=== PATIENT | male | born 1970 | race Caucasian/White ===

== ENCOUNTER 2017-05-25 06:01 | Day surgery (SDC) | payer BC ==
[2017-05-18 09:27] VITALS: BMI 30.2
[~2017-05-25 06:01] MED LIST: DEXAMETHASONE SOD PHOSPHATE 10 MG/ML 1 ML VIAL IV ONE; HEPARIN SODIUM,PORCINE 5,000 UNIT/ML 1 ML VIAL SQ ONE; LACTATED RINGERS 1,000 ML IV SCH; MIDAZOLAM 2 MG/2 ML VIAL IV PRN; ONDANSETRON 4 MG/2 ML VIAL IVP ONE; SCOPOLAMINE 1.5MG/72HR PATCH TRANSDERM ONE
[2017-05-25] MEDS ORDERED: LIDOCAINE 1% 20 ML VIAL (10MG/ML) FOR IV START INTRADERMA ONE (06:40)
[2017-05-25] MEDS ORDERED: BUPIVACAINE (PF) 0.25% 30 ML VIAL SQ ONE ×2 (07:38→08:53)
[2017-05-25] MEDS: ceFAZolin IN SWFI 2 GM/20 ML SYRINGE IVP ONE ×2 (07:39→08:01)
--- NOTE | 2017-05-25 07:41 | P.GSHP ---
History of Present Illness H&P Date: 05/25/17 Chief Complaint: Umbilical hernia Patient was seen in the office with complaints of a supraumbilical bulge. Patient has complaints of pain in that location. It is increasing in size. He is interested in surgical repair. No nausea or vomiting. No change in bowel habits. Past Medical History Past Medical History: No Reported History History of Any Multi-Drug Resistant Organisms: None Reported Additional Past Surgical History / Comment(s): Colonoscopy, [place] Teeth. Past Anesthesia/Blood Transfusion Reactions: No Reported Reaction Smoking Status: Never smoker - Past Family History Mother Family Medical History: No Reported History Brother(s) Family Medical History: Cancer Additional Family Medical History / Comment(s): Colon Medications and Allergies Home Medications Medication Instructions Recorded Confirmed Type No Known Home Medications [No 05/18/17 05/25/17 History Known Home Medications] Allergies Allergy/AdvReac Type Severity Reaction Status Date / Time No Known Allergies Allergy Verified 05/25/17 06:22 Surgical - Exam Vital Signs Temp Pulse Resp BP Pulse Ox 98.1 F 74 16 137/85 98 05/25/17 06:36 05/25/17 06:36 05/25/17 06:36 05/25/17 06:36 05/25/17 06:36 Physical exam: General: Well-developed, well-nourished HEENT: Normocephalic, sclerae nonicteric Abdomen: Nontender, nondistended, incarcerated supra umbilical hernia Extremities: No edema Neuro: Alert and oriented Assessment and Plan (1) Umbilical hernia Narrative/Plan: Will proceed with operative repair likely with mesh. Risks of bleeding, infection, recurrence, bladder and bowel injury, numbness, nerve injury were discussed. The patient understands and wishes to proceed. Current Visit: Yes Status: Acute Code(s): K42.9 - UMBILICAL HERNIA WITHOUT OBSTRUCTION OR GANGRENE SNOMED Code(s): 142078979
[2017-05-25] MEDS ORDERED: fentaNYL (PF) 50 MCG/ML 2 ML AMP ONE (08:07)
[2017-05-25] MEDS ORDERED: KETOROLAC 30 MG/ML 1 ML VIAL ONE (08:07)
[2017-05-25] MEDS ORDERED: MIDAZOLAM 2 MG/2 ML VIAL ONE (08:07)
[2017-05-25] MEDS ORDERED: PROPOFOL 10 MG/ML 20 ML VIAL IV ONE (08:07)
[2017-05-25] MEDS ORDERED: LACTATED RINGERS 1,000 ML IV ONE (08:59)
[2017-05-25] MEDS ORDERED: IV FLUID CONTINUATION 1,000 ML IV ONE ×2 (09:10)
[2017-05-25] MEDS ORDERED: HYDROcodone/APAP 5-325MG 1 EACH TAB PO PRN (09:16)
[2017-05-25] MEDS ORDERED: NALOXONE 0.4 MG/ML 1 ML VIAL IV PRN (09:16)
[2017-05-25 09:18] VITALS: TEMP 97.1
--- NOTE | 2017-05-25 09:24 | P.OP ---
Date of Procedure: 05/25/17 Procedure(s) Performed: PREOPERATIVE DIAGNOSIS: Incarcerated umbilical hernia POSTOPERATIVE DIAGNOSIS: Incarcerated ventral hernia with small umbilical hernia PROCEDURE: Ventral and umbilical herniorrhaphy with mesh SURGEON: Cassi EBL: Minimal ANESTHESIA: General COMPLICATIONS: None OPERATIVE PROCEDURE: The patient was placed in the operating table in the supine position. A periumbilical incision was made using the scalpel. The subcutaneous tissues were dissected bluntly. The hernia sac was identified. The umbilical attachments to the fascia were divided using electrocautery. The hernia sac was excised was noted to be coming from a 1 cm defect approximately 1.5 cm superior to the umbilicus. There was also a small defect present at the base of the umbilicus measuring about 6 mm. These were both included into one defect. The hernia sac was sent to pathology. The preparedwas dissected using blunt dissection and cautery. The 4.3 cm ventral X mesh was placed in the preperitoneal space and sutured to the fascia using trans-fascial 0 Ethibond sutures. The defect was closed using interrupted [id number] 0 Ethibond sutures. The subcutaneous tissues were reapproximated using inverted 3-0 Vicryl sutures. The umbilicus was tacked back down to the fascia using a 3-0 Vicryl suture. The skin was closed using 4-0 Monocryl sutures. Steri-Strips and sterile dressings were then applied. DISPOSITION: Stable to recovery room
[2017-05-25] MEDS: fentaNYL (PF) 50 MCG/ML 2 ML AMP IV PRN ×2 (09:25→09:29)
[2017-05-25 09:27] VITALS: RESP 18
[2017-05-25] MEDS ORDERED: HYDROcodone/APAP 5-325MG 1 EACH TAB PO ONE (10:01)
[2017-05-25 10:23] VITALS: BP 144/87; PULSE 78
== END 2017-05-25 10:51 | disposition home or self-care (01) ==
LOC: OR 06:01
PROVIDERS: ATTEND Surgery
DX: K42.0 Umbilical hernia with obstruction, without gangrene (principal); K43.6 Other and unspecified ventral hernia with obstruction, without gangrene
CPT/HCPCS: 88302; 49587; C1781; J2250; J1644; J1100; J2405; J3010; J1885; J2704; J0690

== ENCOUNTER 2022-01-02 17:11 | Observation (INO) | payer BC ==
[2022-01-02] MEDS ORDERED: NITROGLYCERIN OINT 1 INCH/GM PACKET TOPICAL STA (17:47)
[2022-01-02] MEDS ORDERED: ASPIRIN 81 MG PO STA (17:47)
--- NOTE | 2022-01-02 17:57 | ED ---
General Adult HPI - General Chief complaint: Chest Pain Stated complaint: Chest Pain,PCP sent Source: patient, RN notes reviewed, old records reviewed Mode of arrival: ambulatory Limitations: no limitations - History of Present Illness Initial comments: This a 51-year-old male with past medical history significant for high blood pressure. Patient states he has been having chest pain intermittently lasting a few hours at a time and radiating down his left arm. Patient states is also somewhat short of breath when it occurs. Patient states today he felt better so he decided to work out after the workout he had significant chest pain with some shortness of breath and didn't feel good and also decided come to the emergency department. Patient states he did not overdo it with the workout. Patient denies any recent fever chills or cough. Patient denies any abdominal pain patient denies nausea vomiting diarrhea. Patient denies any swelling to the legs or calf tenderness. Patient denies any recent trips or long travel. Patient denies lightheadedness or dizziness. Patient denies headache per patient states currently his chest pain but is not as bad as it was earlier. - Related Data Home Medications Medication Instructions Recorded Confirmed traZODone HCL [Desyrel] 50 mg PO HS PRN 01/02/22 01/02/22 Allergies Allergy/AdvReac Type Severity Reaction Status Date / Time No Known Allergies Allergy Verified 01/02/22 18:16 Review of Systems ROS Statement: Those systems with pertinent positive or pertinent negative responses have been documented in the HPI. ROS Other: All systems not noted in ROS Statement are negative. Past Medical History Past Medical History: Hypertension History of Any Multi-Drug Resistant Organisms: None Reported Additional Past Surgical History / Comment(s): Colonoscopy, [place] Teeth. Past Anesthesia/Blood Transfusion Reactions: No Reported Reaction Past Psychological History: No Psychological Hx Reported Smoking Status: Never smoker Past Alcohol Use History: Occasional Past Drug Use History: None Reported - Past Family History Mother Family Medical History: No Reported History Brother(s) Family Medical History: Cancer Additional Family Medical History / Comment(s): Colon General Exam - General Exam Comments Initial Comments: GENERAL: Patient is well-developed and well-nourished. Patient is nontoxic and well- hydrated and is in mild distress. ENT: Neck is soft and supple. No significant lymphadenopathy is noted. Oropharynx is clear. Moist mucous membranes. Neck has full range of motion without eliciting any pain. EYES: The sclera were anicteric and conjunctiva were pink and moist. Extraocular movements were intact and pupils were equal round and reactive to light. Eyelids were unremarkable. PULMONARY: Unlabored respirations. Good breath sounds bilaterally. No audible rales rhonchi or wheezing was noted. CARDIOVASCULAR: There is a regular rate and rhythm without any murmurs gallops or rubs. ABDOMEN: Soft and nontender with normal bowel sounds. No palpable organomegaly was noted. There is no palpable pulsatile mass. SKIN: Skin is clear with no lesions or rashes and otherwise unremarkable. NEUROLOGIC: Patient is alert and oriented x3. Cranial nerves II through XII are grossly intact. Motor and sensory are also intact. Normal speech, volume and content. Symmetrical smile. MUSCULOSKELETAL: Normal extremities with adequate strength and full range of motion. No lower extremity swelling or edema. No calf tenderness. LYMPHATICS: No significant lymphadenopathy is noted PSYCHIATRIC: Normal psychiatric evaluation. [id number] Limitations: no limitations Course Vital Signs 01/02/22 01/02/22 17:37 17:52 Temperature 98.5 F 98.6 F Pulse Rate 74 79 Respiratory 20 18 Rate Blood Pressure 157/97 143/96 O2 Sat by Pulse 99 99 Oximetry Medical Decision Making - Medical Decision Making EKG was interpreted by me. EKG shows sinus rhythm at 76 bpm VT interval 274 QRS is 90 QT interval 359 QTC is 390. Patient's EKG shows no ST segment elevation or depression. I interviewed the patient chest x-ray showed no acute abnormality. I went back in and spoke with the patient about his results. Patient stated he had no chest pain throughout his ED stay. I spoke with some physician they agreed to admit the patient admitted the patient wrote a minute orders I repeated troponins and I consult to cardiology. - Lab Data Result diagrams: 01/02/22 17:59 01/02/22 17:59 Lab Results 01/02/22 01/02/22 01/02/22 Range/Units 17:59 17:59 17:59 WBC 6.8 (3.8-10.6) k/uL RBC 4.91 (4.30-5.90) m/uL Hgb 15.3 (13.0-17.5) gm/dL Hct 42.9 (39.0-53.0) % MCV 87.3 (80.0-100.0) fL MCH 31.1 (25.0-35.0) pg MCHC 35.6 (31.0-37.0) g/dL RDW 11.7 (11.5-15.5) % Plt Count 188 (150-450) k/uL MPV 8.1 Neutrophils % 56 % Lymphocytes % 33 % Monocytes % 7 % Eosinophils % 2 % Basophils % 1 % Neutrophils # 3.8 (1.3-7.7) k/uL Lymphocytes # 2.2 (1.0-4.8) k/uL Monocytes # 0.5 (0-1.0) k/uL Eosinophils # 0.1 (0-0.7) k/uL Basophils # 0.1 (0-0.2) k/uL Sodium 137 (137-145) mmol/L Potassium 4.0 (3.5-5.1) mmol/L Chloride 104 (98-107) mmol/L Carbon Dioxide 23 (22-30) mmol/L Anion Gap 10 mmol/L BUN 24 H (9-20) mg/dL Creatinine 0.98 (0.66-1.25) mg/dL Est GFR (CKD-EPI)AfAm >90 (>60 ml/min/1.73 sqM) Est GFR (CKD-EPI)NonAf 89 (>60 ml/min/1.73 sqM) Glucose 98 (74-99) mg/dL Calcium 9.3 (8.4-10.2) mg/dL Magnesium 2.0 (1.6-2.3) mg/dL Total Bilirubin 0.7 (0.2-1.3) mg/dL AST 27 (17-59) U/L ALT 18 (4-49) U/L Alkaline Phosphatase 49 (38-126) U/L Troponin I <0.012 (0.000-0.034) ng/mL Total Protein 7.0 (6.3-8.2) g/dL Albumin 4.6 (3.5-5.0) g/dL Disposition Clinical Impression: Chest pain Disposition: ADMITTED IP TO THIS [facility] Referrals: Carlos Villafuerte MD [Primary Care Provider] - 1-2 days Time of Disposition: 20:22
[2022-01-02 18:45] LABS: Basophils # (A) 0.1 k/uL (0-0.2); Basophils % (A) 1 %; Eosinophils # (A) 0.1 k/uL (0-0.7); Eosinophils % (A) 2 %; HCT 42.9 % (39.0-53.0); HGB 15.3 gm/dL (13.0-17.5); Lymphocytes # (A) 2.2 k/uL (1.0-4.8); Lymphocytes % (A) 33 %; MCH 31.1 pg (25.0-35.0); MCHC 35.6 g/dL (31.0-37.0); MCV 87.3 fL (80.0-100.0); Mean Platelet Volume 8.1; Monocytes # (A) 0.5 k/uL (0-1.0); Monocytes % (A) 7 %; Neutrophils # (A) 3.8 k/uL (1.3-7.7); Neutrophils % (A) 56 %; Platelet Count 188 k/uL (150-450); RBC 4.91 m/uL (4.30-5.90); RDW 11.7 % (11.5-15.5); WBC 6.8 k/uL (3.8-10.6)
[2022-01-02 18:56] LABS: ALT 18 U/L (4-49); AST 27 U/L (17-59); African American GFR (CKD) >90 (>60 ml/min/1.73 sqM); Albumin 4.6 g/dL (3.5-5.0); Alkaline Phosphatase 49 U/L (38-126); Anion Gap 10 mmol/L; Blood Urea Nitrogen 24 mg/dL (9-20); Calcium 9.3 mg/dL (8.4-10.2); Carbon Dioxide 23 mmol/L (22-30); Chloride 104 mmol/L (98-107); Glucose 98 mg/dL (74-99); Non-African American GFR(CKD) 89 (>60 ml/min/1.73 sqM); Sodium 137 mmol/L (137-145); Total Bilirubin 0.7 mg/dL (0.2-1.3)
--- NOTE | 2022-01-02 19:13 | XR ---
EXAMINATION TYPE: XR chest 2V DATE OF EXAM: 01/02/2022 COMPARISON: NONE HISTORY: Chest pain TECHNIQUE: 2 views FINDINGS: Heart is normal. Lungs are clear of infiltrate. No heart failure. There are chest leads. Th ere are no hilar masses. Bony thorax is intact IMPRESSION: No active cardiopulmonary disease. Normal heart.
[2022-01-02] MEDS ORDERED: NITROGLYCERIN SL TABS 0.4 MG TAB SUBLINGUAL PRN (20:22)
[2022-01-02] MEDS ORDERED: traZODone HCL 50 MG TAB PO PRN (20:30)
[2022-01-02 21:13] LABS: Partial Thromboplastin Time 23.1 sec (22.0-30.0)
[2022-01-03] MEDS: NITROGLYCERIN OINT 1 INCH/GM PACKET TOPICAL SCH ×2 (00:03→05:46)
--- NOTE | 2022-01-03 01:29 | P.HPIM ---
History of Present Illness H&P Date: 01/02/22 The patient is a 51-year-old male with no known PMH who presents to the emergency room with complaints of chest pain. Patient reports that he initially developed the symptoms 3 weeks ago when he suddenly woke up with severe left- sided chest discomfort with nausea and vomiting. He reports that since then, he has been experiencing intermittent mild left-sided pressure-like discomfort with radiation to the left shoulder home 8 out of 10 on maximal intensity, nonexertional, and nonpleuritic. Denied experiencing lower extremities swelling or pain. Denied fever, chills, cough, abdominal pain, diarrhea. Denied any family history of heart disease. Patient is a never smoker. Chest x-ray in the emergency room was unremarkable. EKG showing normal sinus rhythm at [address]/T-wave changes noted as reviewed by me. Laboratory evaluation revealed a troponin of less than 0.012. Review of systems: Pertinent positives and negatives as discussed in HPI, a complete review of systems was performed and all other systems are negative. Physical examination: General: non toxic, no distress, appears at stated age, normal weight Derm: no unusual rashes/lesions, warm Head: atraumatic, normocephalic, symmetric Eyes: EOMI, no lid lag, anicteric sclera, pupils equal round reactive to light ENT: Nose and ears atraumatic Neck: No cervical lymphadenopathy, trachea midline, supple Mouth: no lip lesion, mucus membranes moist Cardiovascular: S1S2 reg, no murmur, positive dorsalis pedis pulse bilateral, no edema Lungs: CTA bilateral, no rhonchi, no rales, no accessory muscle use Abdominal: soft, nontender to palpation, no guarding Ext: muscle strength 5 out of 5 in all 4 extremities grossly, no gross muscle atrophy, no contractures, Neuro: CN II-XI grossly intact, no gross focal neuro deficits Psych: Alert, oriented, appropriate affect Assessment/plan Chest pain with typical features -Cardiology consult -Cardiac monitoring -Trend troponin -Continue with aspirin, statin DVT prophylaxis -Heparin subcu The patient is admitted with an anticipated less than than 2 midnight stay for evaluation of chest pain. CODE STATUS: Full Code Discussed with: Patient Anticipated discharge date: In a.m. Anticipated discharge place: Home Past Medical History Past Medical History: Hypertension History of Any Multi-Drug Resistant Organisms: None Reported Additional Past Surgical History / Comment(s): Colonoscopy, [place] Teeth. Past Anesthesia/Blood Transfusion Reactions: No Reported Reaction Past Psychological History: No Psychological Hx Reported Smoking Status: Never smoker Past Alcohol Use History: Occasional Past Drug Use History: None Reported - Past Family History Mother Family Medical History: No Reported History Brother(s) Family Medical History: Cancer Additional Family Medical History / Comment(s): Colon Medications and Allergies Home Medications Medication Instructions Recorded Confirmed Type traZODone HCL [Desyrel] 50 mg PO HS PRN 01/02/22 01/02/22 History Allergies Allergy/AdvReac Type Severity Reaction Status Date / Time No Known Allergies Allergy Verified 01/02/22 18:16 Physical Exam Vitals: Vital Signs Temp Pulse Resp BP Pulse Ox 01/02/22 21:03 90 18 146/99 98 01/02/22 17:52 98.6 F 79 18 143/96 99 01/02/22 17:37 98.5 F 74 20 157/97 99 Intake and Output 01/02/22 01/02/22 01/02/22 06:59 14:59 22:59 Other: Weight 104.326 kg Results CBC & Chem 7: 01/02/22 17:59 01/02/22 17:59 Labs: Abnormal Lab Results - Last 24 Hours (Table) 01/02/22 Range/Units 17:59 BUN 24 H (9-20) mg/dL
[2022-01-03] MEDS ORDERED: ATORVASTATIN 80 MG TAB PO SCH (01:45)
[2022-01-03] MEDS ORDERED: HEPARIN SODIUM,PORCINE/PF 5,000 UNIT/0.5 ML SYRINGE SQ SCH (08:00)
[2022-01-03] MEDS ORDERED: ASPIRIN 81 MG PO SCH (09:00)
[2022-01-03] MEDS ORDERED: ASPIRIN 325 MG TAB PO SCH (09:00)
[2022-01-03 09:31] VITALS: BP 131/88; PULSE 80; RESP 18; TEMP 98.2
--- NOTE | 2022-01-03 09:54 | P.CRDCN ---
History of Present Illness History of present illness: HISTORY OF PRESENT ILLNESS: This is a 51-year-old male with no significant past medical history. 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 We have been asked to see the patient in consultation for chest pain. Patient examined at the bedside. Patient states he has been having chest pain for about 3 weeks. He states that about 3 weeks ago he threw up in the middle of the night and since then he has been having chest discomfort. He states the pain has been intermittent since that time and feels like a pressure type sensation. He states the pain is on various parts of his chest. He states sometimes it is on the left side of his chest and sometimes it is in the middle of his chest. Sometimes it radiates into his left arm. He states the pain can last for a few hours at a time. He reports moving around makes it feel better and when he lays down it makes it feel worse. He states yesterday he was feeling fine and was working out and had no chest discomfort however after he finished his workout he began to have chest pain which was significantly worse than prior episodes. He went to see his PCP who did an EKG and sent him to the emergency room for further evaluation. The patient denies any history of coronary artery disease. Denies a family history of CAD. He denies any nicotine use. He reports occasional alcohol use on the weekends. * EKG reveals sinus mechanism with no signs of acute ischemia. Patient does have minimal ST elevation in Lead I, II, aVL, J Point elevation V1-V6. * Chest xray negative for acute process. * Laboratory data: The WBC 6.8. Hemoglobin 15.3. Platelet count 188. D-dimer 0.19. Sodium 137. Potassium 4.0. BUN 24. Creatinine 0.98. Troponin negative 2. * Current home cardiac medications include none. REVIEW OF SYSTEMS: At the time of my exam: CONSTITUTIONAL: Denies fever or chills. HEENT: Denies blurred vision, vision changes, or eye pain. Denies hemoptysis CARDIOVASCULAR: Denies chest pain. Denies orthopnea. Denies PND. Denies palpitations RESPIRATORY: Denies shortness of breath. GASTROINTESTINAL: Denies abdominal pain. Denies nausea or vomiting. HEMATOLOGIC: Denies bleeding disorders. GENITOURINARY: Denies any blood in urine. SKIN: Denies pruitis. Denies rash. PHYSICAL EXAM: VITAL SIGNS: Reviewed. GENERAL: Well-developed in no acute distress. HEENT: Head is normocephalic. Pupils are equal, round. Sclerae anicteric. Mucous membranes of the mouth are moist. Neck supple. No JVD or thyromegaly LUNGS: Respirations even and unlabored. Lungs essentially clear to auscultation bilaterally. HEART: Regular rate and rhythm. S1 and S2 heard. ABDOMEN: Soft. Nondistended. Nontender. EXTREMITIES: Normal range of motion. No clubbing or cyanosis. Peripheral pulses intact. No lower extremity edema NEUROLOGIC: Awake and alert. Oriented x 3. ASSESSMENT: Chest pain, ACS ruled out Minimal ST elevation, may reflect pericarditis, however patient clinically does not have signs of pericarditis Occasional alcohol use PLAN: An acute coronary event has been ruled out Decrease aspirin to 81mg daily Discontinue nitro paste Obtain 2D echo to assess cardiac structure and function Check ESR and CRP Check lipid panel Patient to undergo stress echo today If negative, he may be discharged home and follow up outpatient with Dr. Aguilar Nurse practitioner note has been reviewed by physician. Signing provider agrees with the documented findings, assessment, and plan of care. Past Medical History Past Medical History: Hypertension History of Any Multi-Drug Resistant Organisms: None Reported Additional Past Surgical History / Comment(s): Colonoscopy, [employer] Teeth. Past Anesthesia/Blood Transfusion Reactions: No Reported Reaction Past Psychological History: No Psychological Hx Reported Smoking Status: Never smoker Past Alcohol Use History: Occasional Past Drug Use History: None Reported - Past Family History Mother Family Medical History: No Reported History Brother(s) Family Medical History: Cancer Additional Family Medical History / Comment(s): Colon Medications and Allergies Home Medications Medication Instructions Recorded Confirmed Type traZODone HCL [Desyrel] 50 mg PO HS PRN 01/02/22 01/02/22 History Allergies Allergy/AdvReac Type Severity Reaction Status Date / Time No Known Allergies Allergy Verified 01/02/22 18:16 Physical Exam Vitals: Vital Signs Temp Pulse Pulse Resp BP Pulse Ox 01/03/22 07:58 72 16 136/88 97 01/03/22 05:36 67 15 123/74 98 01/03/22 04:56 75 01/02/22 21:03 90 18 146/99 98 01/02/22 17:52 98.6 F 79 18 143/96 99 01/02/22 17:37 98.5 F 74 20 157/97 99 Intake and Output 01/02/22 01/03/22 01/03/22 22:59 06:59 14:59 Other: Weight 104.326 kg Results 01/02/22 17:59 01/02/22 17:59 Cardiac Enzymes 01/02/22 01/02/22 01/02/22 Range/Units 17:59 17:59 21:25 AST 27 (17-59) U/L Troponin I <0.012 <0.012 (0.000-0.034) ng/mL Coagulation 01/02/22 Range/Units 17:59 PT 11.0 (9.0-12.0) sec APTT 23.1 (22.0-30.0) sec CBC 01/02/22 Range/Units 17:59 WBC 6.8 (3.8-10.6) k/uL RBC 4.91 (4.30-5.90) m/uL Hgb 15.3 (13.0-17.5) gm/dL Hct 42.9 (39.0-53.0) % Plt Count 188 (150-450) k/uL Comprehensive Metabolic Panel 01/02/22 Range/Units 17:59 Sodium 137 (137-145) mmol/L Potassium 4.0 (3.5-5.1) mmol/L Chloride 104 (98-107) mmol/L Carbon Dioxide 23 (22-30) mmol/L BUN 24 H (9-20) mg/dL Creatinine 0.98 (0.66-1.25) mg/dL Glucose 98 (74-99) mg/dL Calcium 9.3 (8.4-10.2) mg/dL AST 27 (17-59) U/L ALT 18 (4-49) U/L Alkaline Phosphatase 49 (38-126) U/L Total Protein 7.0 (6.3-8.2) g/dL Albumin 4.6 (3.5-5.0) g/dL Current Medications Generic Name Dose Route Start Last Admin Trade Name Freq PRN Reason Stop Dose Admin Aspirin 325 mg 01/03/22 09:00 Aspirin 325 Mg Tab PO DAILY MARILU Atorvastatin Calcium 80 mg 01/03/22 01:45 01/03/22 02:10 Atorvastatin 80 Mg Tab PO Not Given HS MARILU Heparin Sodium (Porcine) 5,000 unit 01/03/22 08:00 Heparin Sodium,Porcine/Pf 5,000 Unit/0.5 Ml Syringe SQ Q8HR MARILU Nitroglycerin 0.4 mg 01/02/22 20:22 Nitroglycerin Sl Tabs 0.4 Mg Tab SUBLINGUAL Q5M PRN Chest Pain Nitroglycerin 1 inch 01/03/22 00:00 01/03/22 05:46 Nitroglycerin Oint 1 Inch/Gm Packet TOPICAL Not Given Q6HR MARILU Trazodone HCl 50 mg 01/02/22 20:30 01/03/22 00:06 Trazodone Hcl 50 Mg Tab PO 50 mg HS PRN Administration Insomnia Intake and Output 01/02/22 01/03/22 01/03/22 22:59 06:59 14:59 Other: Weight 104.326 kg 01/02/22 17:59 01/02/22 17:59
[2022-01-03 10:46] LABS: Chol/HDL Ratio 4.21 Ratio; LDL Cholesterol,Calculated 65.1 mg/dL (0.0-131.0)
--- NOTE | 2022-01-03 11:52 | CA ---
Transthoracic Echo Report Name: Gustavo Garces Age: 51 Gender: M : 1970 Exam Date: 01/03/2022 11:09 Exam Location: [facility] Ht (in): 74 Wt (lb): 230 Ordering Physician: Rosa Callejas Attending/Referring Phys: [id number], Britta Associate Principal Ebony Hernandez, EMMA Procedure CPT: Indications: LV function Cardiac Hx: Technical Quality: Good Contrast 1: Total Dose (mL): Contrast 2: Total Dose (mL): MEASUREMENTS (Male / Female) Normal Values 2D ECHO LV Diastolic Diameter PLAX 4.4 cm 4.2 - 5.9 / 3.9 - 5.3 cm LV Systolic Diameter PLAX 3.1 cm IVS Diastolic Thickness 1.2 cm 0.6 - 1.0 / 0.6 - 0.9 cm LVPW Diastolic Thickness 1.2 cm 0.6 - 1.0 / 0.6 - 0.9 cm LV Relative Wall Thickness 0.5 RV Internal Dim ED PLAX 2.8 cm LA Systolic Diameter LX 3.7 cm 3.0 - 4.0 / 2.7 - 3.8 cm LA Volume 46.4 cm??? 18 - 58 / 22 - 52 cm??? M-MODE Aortic Root Diameter MM 3.2 cm MV E Point Septal Separation 0.3 cm AV Cusp Separation MM 2.6 cm DOPPLER AV Peak Velocity 146.5 cm/s AV Peak Gradient 8.6 mmHg MV Area PHT 6.2 cm??? Mitral E Point Velocity 70.2 cm/s Mitral A Point Velocity 84.2 cm/s Mitral E to A Ratio 0.8 MV Deceleration Time 121.9 ms MV E' Velocity 9.1 cm/s Mitral E to MV E' Ratio 7.7 FINDINGS Left Ventricle Left ventricular ejection fraction is estimated at 60-65 %. Left ventricular cavity size normal. Borderline left ventricular hypertrophy. Right Ventricle Normal right ventricular size and function. Unable to estimate the right ventricular systolic pressure. Right Atrium Normal right atrial size. Left Atrium Normal left atrial size. No evidence for an atrial septal defect. Mitral Valve Structurally normal mitral valve. No mitral stenosis, regurgitation or prolapse. Aortic Valve Trileaflet aortic valve. No aortic valve stenosis or regurgitation. Tricuspid Valve Structurally normal tricuspid valve. No tricuspid stenosis, regurgitation or prolapse. Pulmonic Valve Trace pulmonic regurgitation. Trace to mild pulmonic regurgitation. Pericardium Normal pericardium. No pericardial effusion. Aorta Normal size aortic root and proximal ascending aorta. CONCLUSIONS Normal left ventricular ejection fraction 60-65% No mitral regurgitation No aortic stenosis RVSP normal No pericardial effusion Previewed by: Dr. Benigno Aguilar DO (Electronically Signed) Final Date: 03 January 2022 11:52
--- NOTE | 2022-01-03 11:57 | CA ---
Stress Echo Report Gustavo Garces Age: 51 Gender: M : 1970 Exam Date: 01/03/2022 10:50 Exam Location: [facility] Ht (in): 74 Wt (lb): 230 Ordering Physician: Rosa Callejas Referring Physician: [id number] Finishing Press Operator: Tacos Moore Technologist Procedure CPT: Indication: CP ICD-9 Codes: Rhythm: Patient History: Cardiac Medications: Medications in past 24 hours: Contrast: Stress Results Protocol: Uziel Total dose(mL): Exercise Duration (min:sec): 11:[address] Depression (mm): Angina Score: Hoyt Score: METS: 12.1 Resting HR: 76 Resting BP: 137 / 95 Peak HR: 162 Peak BP: 171 / 80 Max Predicted HR: 168 96 % Max Predicted HR Target HR: 143 Double Product: [id number] Stress Summary: BP Response: Reason for Termination: Reached target heart rate or work-load Cardiac Symptoms: NO SYMPTOMS ECG Analysis Resting ECG: Stress ECG: Arrhythmia: Echo Analysis Resting Echo: Peak Echo Analysis: MEASUREMENTS (Male/Female) Normal Values CONCLUSIONS Patient underwent exercise stress echo with a Uziel protocol treadmill stress test. Patient exercised into Stage 3 for a total of 11 minutes and 9 seconds reaching a total of 12.1 METS. Patient's maximum heart rate was 162 which represented 96% age- predicted maximum heart rate. Stress EKG portion: At baseline patient's EKG showed normal sinus rhythm, normal axis, no significant ST or T wave abnormalities. At peak exercise, EKG showed no significant change from baseline. Stress echo portion: 2-D echocardiogram was performed in the parasternal long, personal short, apical 2 and apical four-chamber views at rest, peak exercise and in recovery. At baseline, echocardiogram showed left ventricular ejection fraction 60% without wall motion abnormalities. With peak exercise, echocardiogram shows improvement in left ventricular ejection fraction, increase contractility, decrease in left ventricular end systolic dimension without wall motion abnormalities consistent with a normal response to exercise. Conclusions: 1. Normal EKG and echo response to exercise without evidence of inducible ischemia. 2. Excellent exercise capacity. Dr. Benigno gAuilar DO (Electronically Signed) Final Date: 03 January 2022 11:56
--- NOTE | 2022-01-03 13:02 | P.DS ---
Providers Date of admission: 01/02/22 20:22 Expected date of discharge: 01/03/22 Attending physician: Coco Tineo MD Consults: 01/02/22 20:22 Consult Physician Urgent Consulting Provider: [facility] Consult Reason/Comments: Chest pain Do you want consulting provider notified?: Yes Primary care physician: Carlos Vázquez [facility] Course: Chest pain The patient is a 51-year-old male with no known PMH who presents to the emergency room with complaints of chest pain. In the ER, patient was afebrile, HDS. Chest x-ray in the emergency room was unremarkable. EKG showing normal sinus rhythm at [address]/T-wave changes noted as reviewed by me. Laboratory evaluation revealed a troponin of less than 0.012. Patient was admitted with cardiology evaluation. Patient underwent echocardiogram which showed EF of 55-60%, no wall motion abnormality. Patient underwent stress test which was negative for reversible ischemia. Patient was also discharged home with PCP follow-up. No chest pain on discharge. Gen: awake, alert HEENT: normocephalic, atraumatic, good hearing acuity, moist mucous membranes Resp: good air exchange, breathing comfortably with no accessory muscle use CVS: good distal perfusion x 4, GI: soft, NTTP, ND : no SPT, no CVAT, wagner catheter not present MSK: no pitting edema, no clubbing Neuro: non-focal, moving all extremities Psych: cooperative, euthymic mood Patient Condition at Discharge: Good Plan - Discharge Summary New Discharge Prescriptions: Continue traZODone HCL [Desyrel] 50 mg PO HS PRN PRN Reason: Insomnia Discharge Medication List traZODone HCL [Desyrel] 50 mg PO HS PRN 01/02/22 [History] Follow up Appointment(s)/Referral(s): Carlos Villafuerte MD [Primary Care Provider] - 1-2 days Discharge Disposition: HOME SELF-CARE
== END 2022-01-03 14:30 | disposition home or self-care (01) ==
LOC: EC 17:11 → 6NMEDSUR 20:22
PROVIDERS: ADMIT Internal Medicine; ATTEND Internal Medicine
DX: R07.89 Other chest pain (principal); I10 Essential (primary) hypertension; I37.1 Nonrheumatic pulmonary valve insufficiency; Z79.899 Other long term (current) drug therapy; Z80.0 Family history of malignant neoplasm of digestive organs
CPT/HCPCS: 96372; 99285; 36415; 93005 ×2; 93306; 93351; 85379; 80061; 80053; 85652; 83735; 84484; 85025; 85610; 85730; 86140; 83036; 71046; G0378 ×2; J1644

== ENCOUNTER → 2022-11-10 | Outpatient (CLI) | payer BC ==
--- NOTE | 2022-12-11 13:52 | P.CEMON ---
Sinus mechanism With mostly Normal heart rates Episodes of sinus tachycardia up to 144 beats a minute No arrhythmias
--- NOTE | 2022-12-13 08:03 | EM ---
Sinus mechanism With mostly Normal heart rates Episodes of sinus tachycardia up to 144 beats a minute No arrhythmias Additional CC's: Carlos HAZEL
== END | disposition home or self-care (01) ==
LOC: RADECHMAIN 07:13
PROVIDERS: ATTEND Family Medicine
DX: R07.9 Chest pain, unspecified (principal); R00.0 Tachycardia, unspecified
CPT/HCPCS: 93270

== ENCOUNTER 2023-03-18 16:25 | Emergency (ER) | payer BC ==
[2023-03-18 17:24] VITALS: TEMP 98.1
--- NOTE | 2023-03-18 17:35 | ED ---
General Adult HPI - General Chief complaint: Skin/Abscess/Foreign Body Stated complaint: Metal fragment in chest Time Seen by Provider: 03/18/23 16:39 Source: patient Mode of arrival: ambulatory Limitations: no limitations - History of Present Illness Initial comments: 52-year-old male presenting to the ED with a chief complaint of foreign body. Patient states that he was using 2 hammers earlier. States that he was prying a piece of metal with 1 and hammering with the other and states that when he struck with his hammer a piece of metal shrapnel implanted itself into his neck. No other injuries at this time. Tetanus status up-to-date. No other complaints. - Related Data Home Medications Medication Instructions Recorded Confirmed traZODone HCL [Desyrel] 50 mg PO HS PRN 01/02/22 01/02/22 Allergies Allergy/AdvReac Type Severity Reaction Status Date / Time No Known Allergies Allergy Verified 03/18/23 16:31 Review of Systems ROS Statement: Those systems with pertinent positive or pertinent negative responses have been documented in the HPI. ROS Other: All systems not noted in ROS Statement are negative. Past Medical History Past Medical History: Hypertension History of Any Multi-Drug Resistant Organisms: None Reported Additional Past Surgical History / Comment(s): Colonoscopy, [place] Teeth. Past Anesthesia/Blood Transfusion Reactions: No Reported Reaction Past Psychological History: No Psychological Hx Reported Smoking Status: Never smoker Past Alcohol Use History: Occasional Past Drug Use History: None Reported - Past Family History Mother Family Medical History: No Reported History Brother(s) Family Medical History: Cancer Additional Family Medical History / Comment(s): Colon General Exam Limitations: no limitations General appearance: alert, in no apparent distress Eye exam: Present: normal appearance Neck exam: Present: other (Patient does have some soft tissue swelling with palpable solid mass on the left side of his neck just medial to his carotid artery. No overlying skin changes. ) Respiratory exam: Present: normal lung sounds bilaterally Cardiovascular Exam: Present: regular rate, normal rhythm GI/Abdominal exam: Present: soft Extremities exam: Present: normal inspection Neurological exam: Present: alert, oriented X3 Skin exam: Present: warm, dry Course Vital Signs 03/18/23 03/18/23 03/18/23 16:27 17:06 17:10 Temperature 98.4 F 98.1 F Pulse Rate 98 94 96 Respiratory 18 18 Rate Blood Pressure 156/101 153/99 O2 Sat by Pulse 99 96 96 Oximetry Medical Decision Making - Medical Decision Making Was pt. sent in by a medical professional or institution (TAMMY Brooks, RESOURCE FORESTER, urgent care, hospital, or jail...) When possible be specific @ -[facility] Did you speak to anyone other than the patient for history (EMS, parent, family, police, friend...)? What history was obtained from this source @ -No Did you review nursing and triage notes (agree or disagree)? Why? @ -I reviewed and agree with nursing and triage notes Were old charts reviewed (outside hosp., previous admission, EMS record, old EKG, old radiological studies, urgent care reports/EKG's, jail records)? Report findings @ -Paper copy of cervical spine shows a foreign body within the neck. Differential Diagnosis (chest pain, altered mental status, abdominal pain women, abdominal pain men, vaginal bleeding, weakness, fever, dyspnea, syncope, headache, dizziness, GI bleed, back pain, seizure, CVA, palpatations, mental health, musculoskeletal)? @ -Differential Musculoskeletal Muscular strain, contusion, ligament sprain, fracture, arthritis, septic arthritis, bursitis, cellulitis, muscle spasm, nerve compression, DVT, arterial occlusion, herpes zoster, electrolyte abnormality, tumor.... This is not meant to be in all inclusive list EKG interpreted by me (3pts min.). @ -As above X-rays interpreted by me (1pt min.). @ -X-ray cervical spine shows 5.4 radiopaque foreign body. No other acute findings. CT interpreted by me (1pt min.). @ -None done U/S interpreted by me (1pt. min.). @ -None done What testing was considered but not performed or refused? (CT, X-rays, U/S, labs)? Why? @ -None What meds were considered but not given or refused? Why? @ -None Did you discuss the management of the patient with other professionals (professionals i.e. TAMMY Brooks, RESOURCE FORESTER, lab, RT, psych nurse, social media editor, chemical laboratory tester, teacher, environmental officer, piano case maker)? Give summary @ -No Was smoking cessation discussed for >3mins.? @ -No Was critical care preformed (if so, how long)? @ -No Were there social determinants of health that impacted care today? How? (Homelessness, low income, unemployed, alcoholism, drug addiction, transportation, low edu. Level, literacy, decrease access to med. care, half-way, rehab)? @ -No Was there de-escalation of care discussed even if they declined (Discuss DNR or withdrawal of care, Hospice)? DNR status @ -No What co-morbidities impacted this encounter? (DM, HTN, Smoking, COPD, CAD, Cancer, CVA, ARF, Chemo, Hep., AIDS, mental health diagnosis, sleep apnea, morbid obesity)? @ -None Was patient admitted / discharged? Hospital course, mention meds given and route, prescriptions, significant lab abnormalities, going to OR and other pertinent info. @ -Discharge 52-year-old male presenting to the ED after having a piece of shrapnel embedded itself into his neck. Soft tissue x-ray of the neck did show a 5.4 mm radiopaque foreign body. This is just medial to the carotid artery. Secondary to its location and its small size, felt at this time risks outweigh benefits of bedside foreign body removal at this time. Patient will be provided referral to see Dr. Powers of general surgery for further evaluation. Advised regular wound care. Discussed return precautions with patient who verbalized agreement. Tetanus status up-to-date. Undiagnosed new problem with uncertain prognosis? Rule Bismark Block who is at @ -No Drug Therapy requiring intensive monitoring for toxicity (Heparin, Nitro, Insulin, Cardizem)? @ -No Were any procedures done? @ -No Diagnosis/symptom? @ -Neck pain, foreign body in neck Acute, or Chronic, or Acute on Chronic? @ -Acute Uncomplicated (without systemic symptoms) or Complicated (systemic symptoms)? @ -Uncomplicated Side effects of treatment? @ -No Exacerbation, Progression, or Severe Exacerbation? @ -No Poses a threat to life or bodily function? How? (Chest pain, [place], MT, pneumonia, PE, COPD, DKA, ARF, appy, cholecystitis, CVA, Diverticulitis, Homicidal, Suicidal, threat to staff... and all critical care pts) @ -No Disposition Clinical Impression: Neck pain, Foreign body of neck Disposition: HOME SELF-CARE Condition: Good Instructions (If sedation given, give patient instructions): Acute Wound Care (ED) Additional Instructions: Please return to the Emergency Department if symptoms worsen or any other concerns. Please follow-up with general surgery. Monitor for signs of infection. Is patient prescribed a controlled substance at d/c from ED?: No Referrals: Carlos Villafuerte MD [Primary Care Provider] - 1-2 days Time of Disposition: 18:24
--- NOTE | 2023-03-18 17:38 | XR ---
Neck soft tissues. HISTORY: Rule out radiopaque foreign body. COMPARISON: None. TECHNIQUE: AP and lateral views of the soft tissues neck were obtained. FINDINGS: Within the lateral soft tissues of the neck, there is a 5.4 mm radiopaque foreign body. The airway is widely patent. The epiglottis and aryepiglottic folds are normal. There is no subglotti c narrowing Cervical spine is normal there is no prevertebral soft tissue swelling. There is no tonsi llar enlargement.. IMPRESSION: In the lateral soft tissues of the left neck, there is a 5.4 mm radiopaque foreign body. There is no association with the airway or cervical spine.
[2023-03-18 19:08] VITALS: BP 149/102; PULSE 92; RESP 20
== END 2023-03-18 18:55 | disposition home or self-care (01) ==
LOC: EC 16:25
DX: S10.95XA Superficial foreign body of unspecified part of neck, initial encounter (principal); I10 Essential (primary) hypertension; W45.8XXA Other foreign body or object entering through skin, initial encounter
CPT/HCPCS: 70360; 99284

== ENCOUNTER → 2023-03-22 | Outpatient (CLI) | payer BC ==
--- NOTE | 2023-03-22 13:56 | CT ---
EXAMINATION TYPE: CT soft tissue neck w con CT DLP: 969 mGycm, Automated exposure control for dose reduction was used. DATE OF EXAM: 03/22/2023 1:27 PM COMPARISON: 03/18/2023.. CLINICAL INDICATION:Male, 52 years old with history of S19.80XD injury neck; PHH, metal to his neck on Lt side TECHNIQUE: Standard enhanced CT of the neck. Axial sections with coronal and sagittal reformats were obtained. Contrast used:100 mL of Isovue 300 with IV Contrast, (None if empty) Oral contrast used: (None if empty) FINDINGS: Brain: Visualized portions are grossly unremarkable. Orbits: Unremarkable Sinuses: Grossly unremarkable. Spaces of the neck: .Radiopaque metallic density in the left subcutaneous tissues measuring 5 mm and up to 3 mm deep. No organizing fluid collection. No evidence of acute process. Musculoskeletal: No acute osseous pathology. Lymph nodes: Multiple nonenlarged lymph nodes are seen along both anterior chains of the neck. Vascular structures: Visualized major arteries are patent without evidence of aneurysm. Thoracic Inlet/airway: Airway is patent. The lung apices are clear. Soft tissues/Thyroid: Thyroid and remainder of the soft tissues are unremarkable. Other: none. IMPRESSION Left neck subcutaneous metallic radiopaque foreign body measuring up to 5 mm is approximately 3 mm be low the skin surface. No organizing fluid collection. No evidence of acute process.
== END | disposition home or self-care (01) ==
LOC: RADCTMAIN 13:00
PROVIDERS: ATTEND Family Medicine
DX: S19.80XD Other specified injuries of unspecified part of neck, subsequent encounter (principal)
CPT/HCPCS: 70491; Q9967

== ENCOUNTER 2023-04-03 07:09 | Day surgery (SDC) | payer BC ==
[2023-03-30 11:29] VITALS: BMI 29.5
[~2023-04-03 07:09] MED LIST changes: -DEXAMETHASONE SOD PHOSPHATE 10 MG/ML 1 ML VIAL IV ONE; -HEPARIN SODIUM,PORCINE 5,000 UNIT/ML 1 ML VIAL SQ ONE; +HYDROmorphone 0.5 MG/0.5 ML SYRINGE IVP PRN; -LACTATED RINGERS 1,000 ML IV SCH; +LIDOCAINE 1% (10MG/ML) FOR IV START INTRADERMA PRN; -MIDAZOLAM 2 MG/2 ML VIAL IV PRN; -ONDANSETRON 4 MG/2 ML VIAL IVP ONE; +Pre Op ABX Message 1 EACH MISC MISCELLANE ONE; -SCOPOLAMINE 1.5MG/72HR PATCH TRANSDERM ONE; +droPERidol 5 MG/2 ML VIAL IVP ONE
[2023-04-03] MEDS ORDERED: PROPOFOL 10 MG/ML 20 ML VIAL IV ONE (08:28)
[2023-04-03] MEDS ORDERED: fentaNYL (PF) 50 MCG/ML 2 ML AMP ONE (08:28)
[2023-04-03] MEDS ORDERED: KETAMINE HCL IN 0.9 % NACL 50 MG/5 ML SYRINGE ONE (08:28)
[2023-04-03] MEDS ORDERED: MIDAZOLAM 2 MG/2 ML VIAL ONE (08:28)
[2023-04-03] MEDS: LACTATED RINGERS 1,000 ML IV SCH (08:32)
[2023-04-03] MEDS: ONDANSETRON 4 MG/2 ML VIAL IVP ONE (08:32)
[2023-04-03] MEDS: DEXAMETHASONE SOD PHOSPHATE 4 MG/ML 1 ML VIAL IV ONE (08:32)
[2023-04-03 08:33] VITALS: TEMP 97
[2023-04-03] MEDS: LIDOCAINE 1% INJ 10MG/ML (20 ML MDV) SQ ONE (09:15)
--- NOTE | 2023-04-03 09:52 | P.OP ---
Date of Procedure: 04/03/23 Description of Procedure: Preoperative diagnosis: Left neck foreign body Postoperative diagnosis: Same Procedure: Left neck exploration Removal of foreign body Fluoroscopic utilization and interpretation Surgeon: Anastacia Perry D.O. EBL: 5 cc IV fluids: See records Urine output: Not measured Drains: None Complications: None immediately apparent Condition: Stable Operative indication and findings: Patient is a 52-year-old male who previously was utilizing old hammer and doing some work on a deck at which time he had a piece of shrapnel into his neck. He initially had workup and evaluation and was sent home. Due to his concern regarding this he presented for further evaluation and due to the potential for need for MRI was requesting removal. Risk and benefits were discussed including but not limited to bleeding, infection and injury to the surrounding tissue. He similar symptoms willing to proceed. Procedure in detail: Patient was taken the operative suite placed in supine position. The left neck was prepped and draped in usual sterile fashion. A preprocedural timeout was performed, all parties were in agreement. Over the area of the palpated mass, the skin was anesthetized and incision was made and carried down to the subcutaneous tissue. After some dissection, a small piece of the shrapnel was identified. Multiple small pieces of fat and other excised tissue were removed. There is no further palpable remnant of the shrapnel in the neck. Confirmation of this was performed using a C arm. The piece found was then also fluoroscopy aid confirming radiolucency. Again no further identifiable foreign body in the neck therefore the area was copiously irrigated. Deep dermal tissues were reapproximated with interrupted sutures of 3-0 Vicryl. The skin was reapproximated with running 4-0 PDS. Dressings were placed. The patient was allowed awaken from anesthesia and transported to recovery in stable condition having tolerated the procedure well. Plan - Discharge Summary Discharge Rx Participant: No New Discharge Prescriptions: No Action traZODone HCL [Desyrel] 50 mg PO HS PRN PRN Reason: Insomnia Multivit-Mins/Iron/Folic/Lycop [Centrum Men's Tablet] 1 each PO DAILY Discharge Medication List traZODone HCL [Desyrel] 50 mg PO HS PRN 01/02/22 [History] Multivit-Mins/Iron/Folic/Lycop [Centrum Men's Tablet] 1 each PO DAILY 03/30/23 [History] Follow up Appointment(s)/Referral(s): Anastacia Perry DO [STAFF PHYSICIAN] - 1 Week Activity/Diet/Wound Care/Special Instructions: May shower starting tomorrow. May remove dressing and apply as needed or if desired. Return to regular activity. Return to regular medication. [id number] medications for pain control. May ice. Return to regular diet. Discharge Disposition: HOME SELF-CARE
[2023-04-03 09:54] VITALS: BP 142/82; PULSE 68; RESP 17
--- NOTE | 2023-04-03 15:39 | FL ---
EXAMINATION TYPE: FL guidance operating room DATE OF EXAM: 04/03/2023 Comparison: None Clinical History: 52-year-old male removal foreign body Findings: Removal of foreign body from neck with Dr. Perry. 3 sec fluoro time. .1530 Gycm2 DAP. 1 image saved. Impression: Surgical fluoroscopy as above
== END 2023-04-03 10:09 | disposition home or self-care (01) ==
LOC: OR 07:09
PROVIDERS: ATTEND Surgery
DX: M79.5 Residual foreign body in soft tissue (principal); I10 Essential (primary) hypertension; Z98.890 Other specified postprocedural states
CPT/HCPCS: 20525; J2250; J1100; J2405; J2001; J3010; J2704

== ENCOUNTER → 2024-01-11 | Outpatient (CLI) | payer BC ==
--- NOTE | 2024-01-11 11:33 | US ---
EXAMINATION TYPE: US groin LT DATE OF EXAM: 01/11/2024 COMPARISON: NONE CLINICAL INDICATION: Male, 53 years old with history of K40.90UNIL INGUINAL HERNIA, W/O OBST OR GANGR , NOT; r/o hernia TECHNIQUE: Several images taken at area of concern with and without valsalva and compression FINDINGS/IMPRESSION: There is a 3.6x5.6x1.3cm fat containing left inguinal hernia that is semi reduc ible with transducer compression. Neck measures up to 0.9cm. No fluid collections identified. No ysabel opathy identified. [facility], , 01/11/2024 11:31 AM
== END | disposition home or self-care (01) ==
LOC: RADUSWWP 09:32
PROVIDERS: ATTEND Family Medicine
DX: K40.90 Unilateral inguinal hernia, without obstruction or gangrene, not specified as recurrent (principal); M54.12 Radiculopathy, cervical region

== ENCOUNTER → 2024-02-05 | Outpatient (CLI) | payer BC ==
--- NOTE | 2024-02-05 14:38 | MR ---
EXAMINATION TYPE: MR cervical spine wo con DATE OF EXAM: 02/05/2024 1:28 PM COMPARISON: None. CLINICAL INDICATION: Male, 53 years old with history of M54.12 RADICULOPATHY, neck pain that radiates into left side TECHNIQUE: Multiplanar, multisequence images of the cervical spine were acquired without contrast. FINDINGS: Diminished marrow signal intensity suggesting red marrow hyperplasia. No craniocervical junction abnormality, predental space widening, or prevertebral soft tissue swellin g. Alignment is maintained. Minimal disc bulging scattered throughout the cervical spine without any focal disc herniation or spi nal canal stenosis. Normal course, caliber, and signal intensity of the cervical spinal cord. Mild multilevel facet arthropathy throughout the cervical spine. Changes result in mild right neurofo raminal narrowing at C3-C4. No significant neuroforaminal stenosis appreciated. No prevertebral or paravertebral soft tissue abnormality seen. IMPRESSION: 1. Red marrow hyperplasia which can be seen in the setting of anemia, obesity, smoking, or chronic di sease. 2. Scattered mild facet arthropathy throughout. Changes result in mild right neuroforaminal stenosis at C3-C4. 3. No focal disc herniation or spinal canal stenosis. [facility], , 02/05/2024 2:36 PM
== END | disposition home or self-care (01) ==
LOC: RADMRIMAIN 12:29
PROVIDERS: ATTEND Family Medicine
DX: M47.812 Spondylosis without myelopathy or radiculopathy, cervical region (principal); M48.02 Spinal stenosis, cervical region; M54.12 Radiculopathy, cervical region; K40.90 Unilateral inguinal hernia, without obstruction or gangrene, not specified as recurrent
CPT/HCPCS: 72141

== ENCOUNTER → 2024-04-28 | Outpatient (CLI) | payer BC ==
[2024-04-28 15:16] LABS: Basophils # (A) 0.03 X 10*3/uL (0.00-0.10); Basophils % (A) 0.6 %; Eosinophils # (A) 0.07 X 10*3/uL (0.04-0.35); Eosinophils % (A) 1.5 %; HGB 14.2 g/dL (13.0-17.0); Lymphocytes # (A) 1.49 X 10*3/uL (0.90-5.00); Lymphocytes % (A) 31.2 %; MCH 30.3 pg (27.0-32.0); MCHC 33.8 g/dL (32.0-37.0); MCV 89.7 FL (80.0-97.0); Mean Platelet Volume 11.1 FL (9.5-12.2); Monocytes % (A) 8.4 %; NRBC Per 100 WBC 0 X 10*3/uL (0.00-0.01); Neutrophils # (A) 2.75 X 10*3/uL (1.80-7.70); Neutrophils % (A) 57.7 %; Platelet Count 188 X 10*3/uL (140-440); RBC 4.68 X 10*6/uL (4.40-5.60); RDW 11.9 % (11.5-14.5); WBC 4.77 X 10*3/uL (4.50-10.00)
== END | disposition home or self-care (01) ==
LOC: LABWHC1 08:13
PROVIDERS: ATTEND Surgery
DX: Z01.818 Encounter for other preprocedural examination (principal); K40.90 Unilateral inguinal hernia, without obstruction or gangrene, not specified as recurrent
CPT/HCPCS: 36415; 85025; 86850; 86900; 86901; 93005

== ENCOUNTER 2024-05-02 08:58 | Day surgery (SDC) | payer BC ==
[2024-04-28 10:47] VITALS: BMI 26.9
--- NOTE | 2024-05-02 08:52 | P.GSHP ---
History of Present Illness H&P Date: 05/02/24 Chief Complaint: Right inguinal hernia 53-year-old male seen in the office in January. Patient with complaints of a bulge right groin. Increasing in size. Mild pain at times. History of previous open umbilical/ventral hernia repair in the past. Past Medical History Past Medical History: Hypertension Additional Past Medical History / Comment(s): Boderline HTN-NO MEDS NEEDED SINCE WT LOSS, History of Any Multi-Drug Resistant Organisms: None Reported Past Surgical History: Hernia Repair Additional Past Surgical History / Comment(s): Colonoscopy, [place] Teeth. Shrapnel L neck.-REMOVED 2023 Past Anesthesia/Blood Transfusion Reactions: No Reported Reaction Smoking Status: Never smoker - Past Family History Mother Family Medical History: No Reported History Brother(s) Family Medical History: Cancer Additional Family Medical History / Comment(s): Colon Medications and Allergies Home Medications Medication Instructions Recorded Confirmed Type No Known Home Medications 04/28/24 04/28/24 History Allergies Allergy/AdvReac Type Severity Reaction Status Date / Time No Known Allergies Allergy Verified 04/28/24 10:41 Surgical - Exam Physical exam: General: Well-developed, well-nourished HEENT: Normocephalic, sclerae nonicteric Abdomen: Nontender, nondistended, reducible right inguinal hernia Extremities: No edema Neuro: Alert and oriented Assessment and Plan (1) Right inguinal hernia Narrative/Plan: 53-year-old male with reducible right inguinal hernia. Will proceed with laparoscopic da Figueroa assisted repair right inguinal hernia with mesh, possible open, possible bilateral. Risks of bleeding, infection, recurrence, chronic pain, bladder and bowel injury, numbness, conversion to an open procedure, scarring, and anesthesia related complications were discussed. The correlation between hernia recurrence, obesity and smoking were reviewed in detail. The patient understands and wishes to proceed. Status: Acute Code(s): K40.90 - UNIL INGUINAL HERNIA, W/O OBST OR GANGR, NOT SPCF RECUR SNOMED Code(s): 226337229
[~2024-05-02 08:58] MED LIST changes: -HYDROmorphone 0.5 MG/0.5 ML SYRINGE IVP PRN; -Pre Op ABX Message 1 EACH MISC MISCELLANE ONE; -droPERidol 5 MG/2 ML VIAL IVP ONE
[2024-05-02] MEDS: IV FLUID CONTINUATION 1,000 ML IV ONE ×2 (09:21→12:19)
[2024-05-02] MEDS: ACETAMINOPHEN TAB 500 MG TAB PO PRN (09:31)
[2024-05-02] MEDS: HEPARIN SODIUM,PORCINE 5,000 UNIT/ML 1 ML VIAL SQ PRN (09:31)
[2024-05-02] MEDS: LACTATED RINGERS 1,000 ML IV SCH (09:31)
[2024-05-02] MEDS: ONDANSETRON 4 MG/2 ML VIAL IVP STA (09:31)
[2024-05-02] MEDS: DEXAMETHASONE SOD PHOSPHATE 4 MG/ML 1 ML VIAL IVP STA (09:32)
[2024-05-02] MEDS ORDERED: fentaNYL (PF) 50 MCG/ML 2 ML AMP ONE (10:23)
[2024-05-02] MEDS ORDERED: GLYCOPYRROLATE 0.2 MG/ML 2 ML VIAL ONE (10:23)
[2024-05-02] MEDS ORDERED: PROPOFOL 10 MG/ML 20 ML VIAL IV ONE (10:23)
[2024-05-02] MEDS ORDERED: LIDOCAINE 1% INJ 10MG/ML (20 ML MDV) ONE (10:23)
[2024-05-02] MEDS ORDERED: KETOROLAC 15 MG/ML 1 ML VIAL ONE (10:23)
[2024-05-02] MEDS ORDERED: HYDROmorphone (PF) 1 MG/ML ONE (10:23)
[2024-05-02] MEDS ORDERED: MIDAZOLAM 2 MG/2 ML VIAL ONE (10:23)
[2024-05-02] MEDS ORDERED: ROCURONIUM 10 MG/ML (5 ML VIAL) IV ONE (10:23)
[2024-05-02] MEDS ORDERED: NEOSTIGMINE 1 MG/ML 10 ML VIAL ONE (10:23)
[2024-05-02] MEDS: BUPIVACAINE (PF) 0.25% 30 ML VIAL SQ ONE ×2 (10:44)
[2024-05-02 12:17] VITALS: TEMP 97.4
--- NOTE | 2024-05-02 12:25 | P.OP ---
Date of Procedure: 05/02/24 Procedure(s) Performed: PREOPERATIVE DIAGNOSIS: Incarcerated left inguinal hernia POSTOPERATIVE DIAGNOSIS: Same with cord lipoma PROCEDURE: Laparoscopic da Figueroa assisted repair left incarcerated inguinal hernia with mesh, excision cord lipoma SURGEON: Dr. Ye ANESTHESIA: General EBL: 10 cc OPERATIVE PROCEDURE DETAILS: Patient was placed in the operating table in the supine position. The patient was placed under general anesthesia. The abdomen was prepped and draped in usual sterile fashion. A small curvilinear supraumbilical incision was made. The fascia was retracted anteriorly with Marta forceps. The Veress needle was inserted. The saline drop test was normal. Insufflation took place to 15 mmHg. An 8 mm trocar was placed into the peritoneal cavity. 2 additional 8 mm trochars were placed in the right upper quadrant and left upper quadrant under visualization. The robotic arms were t hen brought in and docked into place. The fenestrated bipolar was used in the left arm and the laparoscopic gino was utilized in the right arm. A 30 8 mm scope was used in the up position. The peritoneal cavity was inspected. The patient had adhesions in the left lower quadrant between the pericolonic fat and the left lower abdominal wall likely related to prior episodes of diverticuliti s. The right groin showed no evidence of hernia. On the left-hand side however the patient had a indirect inguinal hernia able to be barely visualized behind these adhesions. Thankfully we were not required to lyse these adhesions as they came down nicely with our peritoneal flap. The peritoneum was incised in a horizontal fashion cephalad to the internal inguinal ring. Following that careful dissection of the preperitoneal space took place. This took place using both electrocautery, sharp dissection but primarily blunt dissection. Visualization of the pubic tubercle and Alex's ligament took place medially. Full dissection took place laterally as well. The hernia sac was fully dissected. After the cord was fully reduced I scrubbed back into the case and palpated the area of the incarcerated hernia. There still seem to be some fullness there and as I was compressing this area a cord lipoma was able to be visualized and partially reduced. I scrubbed back into the case and was able to grab the lipomatous tissue that I visualized and excised this cord lipoma. This measured approximately 6 x 3 cm. No residual lipomatous tissue was identified. No additional defects in the femoral or direct space were identified. Once we had adequate space the [id number] Progrip mesh was advanced into the preperitoneal space and flattened out appropriately to cover all potential hernia sites. The mesh was sutured medially to the folding edge of Alex's ligament. This was performed using a absorbable 3-0 V-Loc suture. The peritoneal defect was then closed using a absorbable 2-0 VLok suture. The hernia sac was incorporated into the peritoneal closure to help prevent future recurrence. The cord lipoma was removed using a 5 mm bag. This was sent to pathology. The pneumoperitoneum was then evacuated. The skin of all 3 sites was closed using a 4-0 Monocryl stitch. Skin glue was then applied. TYPE OF MESH USED: 15 cm ProGrip LOCATION OF MESH: [place], preperitoneal FIXATION: Absorbable 3 oh V-Loc PREOPERATIVE DISCUSSION ON SMOKING CESSASTION: Yes PREOPERATIVE DISCUSSION ON MORBID OBESITY: Yes PREOPERATIVE DISCUSSION ON APPROPRIATE USE OF NARCOTIC USE: Yes PREOPERATIVE EDUCATION: Multi Modal, Smoking Cessation and Weight Loss with BMI over 35. DISPOSITION: Stable to recovery room
[2024-05-02 13:16] VITALS: RESP 16
[2024-05-02] MEDS ORDERED: ACETAMINOPHEN TAB 325 MG TAB PO SCH (15:00)
[2024-05-02] MEDS: TAMSULOSIN 0.4 MG CAP.ER.24H PO STA (15:03)
[2024-05-02 15:16] VITALS: BP 118/76; PULSE 85
[2024-05-02] MEDS ORDERED: IBUPROFEN 600 MG TAB PO SCH (18:00)
== END 2024-05-02 15:14 | disposition home or self-care (01) ==
LOC: OR 08:58
PROVIDERS: ATTEND Surgery
DX: K40.30 Unilateral inguinal hernia, with obstruction, without gangrene, not specified as recurrent (principal); D17.6 Benign lipomatous neoplasm of spermatic cord; I10 Essential (primary) hypertension; Z79.85 Long-term (current) use of injectable non-insulin antidiabetic drugs; Z79.2 Long term (current) use of antibiotics; Z80.0 Family history of malignant neoplasm of digestive organs
CPT/HCPCS: 49650; 55559; S2900; 88304